=== PATIENT | male | born 1950 | race Caucasian/White ===

== ENCOUNTER 2023-07-06 18:18 | Emergency (ER) | payer MEDICARE, OTHER, SELFPAY ==
[2023-07-06 18:41] VITALS: BP 130/60; PULSE 50; RESP 16; TEMP 36.6; O2SAT 98
--- NOTE | 2023-07-06 19:03 | ED.EXTPRO ---
HPI - Extremity Problem General Chief complaint: Extremity Problem,Nontraumatic Stated complaint: left side, back of leg hurts Time Seen by Provider: 07/06/23 18:47 Source: patient and RN notes reviewed Mode of arrival: ambulatory Limitations: no limitations History of Present Illness HPI Narrative: Patient presents today complaining of left lateral hip x2 weeks that occasionally radiates to his groin and posterior knee. Symptoms worse today. He does have some chronic tingling in the hip area that is unchanged. Denies back pain. Currently rates his pain 8/10 and has been taking ibuprofen or Advil which provide mild relief. He denies any known injury or trauma to his hip Related Data Home Medications Medication Instructions Recorded Confirmed aspirin 81 mg chewable tablet 81 mg PO DAILY 07/06/23 07/06/23 fluoxetine 40 mg capsule 40 mg PO DAILY 07/06/23 07/06/23 rosuvastatin 5 mg tablet 5 mg PO DAILY 07/06/23 07/06/23 tamsulosin 0.4 mg capsule 0.4 mg PO DAILY 07/06/23 07/06/23 Allergies Allergy/AdvReac Type Severity Reaction Status Date / Time Sulfa (Sulfonamide Allergy Mild Hives / Verified 07/06/23 18:35 Antibiotics) Red Face Review of Systems Review of Systems: CONSTITUTIONAL: Denies body aches, fever, chills, or sweats. EYES: Denies visual changes, redness, or discharge. ENT: Denies rhinorrhea, congestion, sore throat, or otalgia. CARDIOVASCULAR: Denies chest pain, palpitations, or edema. RESPIRATORY: Denies cough or dyspnea. GASTROINTESTINAL: Denies abdominal pain, nausea, vomiting, or diarrhea. GENITOURINARY: Denies dysuria or hematuria. SKIN: Denies rash, itching, or wounds. MUSCULOSKELETAL: Denies back pain, or myalgia.+ left hip pain NEUROLOGIC: Denies headache, numbness, tingling, or weakness. PSYCH: Denies depression or anxiety. [facility] Past Medical History Medical History (Updated 07/06/23 @ 19:33 by Fay Donald, [facility], ) High cholesterol Comments At time of signature, I have reviewed and agree with nursing past medical, surgical, social and family history unless otherwise noted. Please see nursing chart for further information. There is no relevant family history pertinent to the presenting complaint Exam Narrative: GENERAL: Well-appearing, well-nourished, and in no acute distress. HEAD: Normocephalic, atraumatic. EYES: EOMI. No redness or drainage. Conjunctivae normal. ENT: Mucous membranes pink and moist. NECK: Normal AROM. CHEST: No respiratory distress. MUSCULOSKELETAL: No bony tenderness of the spine. EXTREMITIES: Left hip: Tenderness to the lateral hip, area of the greater trochanter. This pain is worsened with flexion. Distal sensation intact. Capillary refill normal. No tenderness to the SI joint SKIN: Warm, dry, no rash. Capillary refill normal. Normal skin turgor. NEURO: No focal deficits. Alert and oriented x3. Gait steady. PSYCH: Normal affect. No signs of depression or anxiety. Course Course Level of Care: Express Care Visit Vital Signs Vital signs: Vital Signs Temperature 97.9 F 07/06/23 18:41 Pulse Rate 50 L 07/06/23 18:41 Respiratory Rate 16 07/06/23 18:41 Blood Pressure 130/60 07/06/23 18:41 Pulse Oximetry 98 07/06/23 18:41 Oxygen Delivery Room Air 07/06/23 18:41 Temperature 97.9 F 07/06/23 18:41 Pulse Rate 50 L 07/06/23 18:41 Respiratory Rate 16 07/06/23 18:41 Blood Pressure 130/60 07/06/23 18:41 Pulse Oximetry 98 07/06/23 18:41 Oxygen Delivery Room Air 07/06/23 18:41 Reviewed MDM - Extremity (Nontraumatic) MDM Narrative Medical decision making narrative: Patient will be treated with a course of prednisone for his symptoms, trochanteric bursitis verses osteoarthritis versus tendinitis. Recommend following up with PCP or orthopedics in 1 week if symptoms persist. Anticipatory guidance given. Differential Diagnosis Differential diagnosis: Likely other (Trochanteric bursitis, piriformis sy
== END 2023-07-06 19:12 | disposition home or self-care (01) ==
PROVIDERS: Emergency Provider Nurse Practitioner; PCP Family Medicine
DX: M25.552 Pain in left hip (principal); E78.00 Pure hypercholesterolemia, unspecified
CPT/HCPCS: 99213; G0463

== ENCOUNTER 2024-02-14 18:43 | Emergency (ER) | payer MEDICARE, OTHER, SELFPAY ==
--- NOTE | 2024-02-14 18:51 | ED_ITS ---
HPI - Wound/Laceration General Chief Complaint: Wound/Laceration Stated Complaint: Right Hand Laceration Time Seen by Provider: 02/14/24 18:53 Source: patient Mode of arrival: ambulatory Limitations: no limitations History of Present Illness HPI narrative: Gregg is a 73-year-old male patient presenting to the clinic today with complaints of a hand laceration to his right hand that occurred approximately 1 hour ago. Tetanus is unknown. He states he cut it on a brand new break drum. He had wash his hands with soap and water prior to arrival. Bleeding is controlled Related Data Home Medications ?Medication ?Instructions ?Recorded ?Confirmed ?Last Taken ?Type rosuvastatin 5 mg tablet 5 mg PO DAILY 07/06/23 02/14/24 Unknown History tamsulosin 0.4 mg capsule 0.4 mg PO DAILY 07/06/23 02/14/24 Unknown History Allergies Allergy/AdvReac Type Severity Reaction Status Date / Time Sulfa (Sulfonamide Allergy Mild Hives / Verified 02/14/24 18:48 Antibiotics) Red Face Review of Systems Review of Systems: Pertinent positives per HPI. Patient denies any fever, chills, rash, headache, visual changes, dizziness, cough, shortness of breath, chest pain, palpitations, nausea, vomiting, diarrhea, constipation, abdominal pain, or any urinary issues. [facility] Past Medical History Medical History High cholesterol Comments At the time of my signature, I reviewed and agree with the nursing past medical, surgical, social, and family history. There is no relevant family history pertinent to the patient complaint. Exam Narrative: General: Well-developed, well nourished, in no apparent distress Head: Normocephalic, atraumatic. Cardio: Regular rate and rhythm, s1 and s2 normal, no murmur appreciated. Resp: Clear to auscultation bilaterally, no rhonchi, rales, wheezing or rubs. Integumentary: [place], warm, and dry, laceration measures approximately 1.5 cm palmar aspect of the proximal thumb/carpal joint Course Course Emergency Course: Portions of this record may have been created with voice recognition software. Level of Care: Express Care Visit Vital Signs Vital signs: Vital signs reviewed Procedures Laceration Laceration 1: Date: 12/27/24 Site: hand (right proximal thumb) Size (cm): 1.5 Description: linear Depth: simple, single layer Local Anesthetic: lidocaine 1% Amount of anesthesia used (mL): 2 Pre-repair: wound explored and irrigated extensively ====== Skin Level ====== Skin layer closed with: nylon Size (cm): 5-0 Number of sutures: 3 Technique: simple, interrupted ====== Subcutaneous Layer ====== ====== Muscle Layer ====== ====== Tendon Layer ====== Dressing: Verbal consent obtained for laceration repair. Risk and benefits explained and patient voiced understanding. Area was cleansed with Betadine and normal saline. A 27 gauge needle was then used to instill (2) ml of 1% lidocaine without epi into the wound edges. Area was prepped and draped using sterile technique. A 5-0 suture on a p needle was used to place (3) interrupted sutures bringing the wound edges together- well approximated. Patient tolerated procedure well. Sterile dressing applied. MDM - Wound/Laceration MDM Narrative Medical decision making narrative: At the time of visit patient is resting comfortably on the exam table. Patient appears to be nontoxic. Procedures: Laceration repair was performed in the clinic today. Medications: Tdap was given in the clinic today Plan: Laceration repair was performed in the clinic today. Patient tolerated well. Three interrupted sutures were placed bringing wound edges well- approximated. Recommend sutures out 10 days. Supportive measures were discussed with the patient and they voiced understanding discharge instructions and agrees to treatment plan. Return precautions reviewed Differential Diagnosis Differential diagnosis: Likely laceration, abscess, abrasion and avulsion of skin Discharge Plan Discharge Clinical Impression: Laceration of thumb Qualifiers: Encounter type: initial encounter Damage to nail status: without damage Foreign body presence: without foreign body Laterality: right Qualified Code(s): S61.011A - Laceration without foreign body of right thumb without damage to n ail, initial encounter Patient Disposition: Home, Self-Care Condition: Stable Instructions: Antibiotic Form, Finger Laceration (ED) Additional Instructions: Tdap was given in the clinic today. Leave bandage on for 24 hours then may remove and apply band aide covering as needed. Keep wound clean and dry Skin sutures out in 10 days. Watch for signs and symptoms of infection- redness, streaking, swelling, purulent discharge, or increase in pain. Follow up with your PCP for suture removal or return to the Express care. Patient Language: Japanese Prescriptions: No Action tamsulosin 0.4 mg capsule 0.4 mg PO DAILY rosuvastatin 5 mg tablet 5 mg PO DAILY Follow-up/Referrals: Jennifer,Robert Coles MD [Primary Care Provider] - Stand Alone Forms: Work/School Release IP Time of Disposition: 19:13 Quality NIHSS Nursing Documentation ED NIHSS nursing documentation: reviewed/agree
[2024-02-14 19:00] VITALS: BP 158/61; PULSE 56; RESP 16; TEMP 36.6; O2SAT 98
[2024-02-14] MEDS: TETANUS,DIPHTHERIA,AC PERTUSSIS ADULT (0.5 ML) BOOSTRIX IM (19:01)
[2024-02-14] MEDS: LIDOCAINE 1% LOCAL INJ 2 ML AMPUL 4 ML INFILTRATE (19:05)
== END 2024-02-14 19:20 | disposition home or self-care (01) ==
PROVIDERS: Emergency Provider Nurse Practitioner Family; PCP Family Medicine
DX: S61.011A Laceration without foreign body of right thumb without damage to nail, initial encounter (principal); Z79.899 Other long term (current) drug therapy; Z23 Encounter for immunization; W45.8XXA Other foreign body or object entering through skin, initial encounter
CPT/HCPCS: 12001; 90471; 90715; 99212; G0463; J2003